=== PATIENT | female | born 1990 | race Two or more races ===

== ENCOUNTER 2017-08-20 22:12 | Emergency (ER) | payer OTHER ==
[~2017-08-20] VITALS: Ht 157.5 cm; Wt 52.2 kg
== END 2017-08-20 23:40 | disposition home or self-care (01) ==
LOC: ER 22:12
DX: S00.87XA Other superficial bite of other part of head, initial encounter (principal); W54.0XXA Bitten by dog, initial encounter; Y93.89 Activity, other specified; Y92.89 Other specified places as the place of occurrence of the external cause; Y99.8 Other external cause status

== ENCOUNTER → 2018-11-07 | Outpatient (CLI) | payer OTHER | END | disposition home or self-care (01) | LOC: RAD 11:53 | DX: M75.42 Impingement syndrome of left shoulder (principal) ==

== ENCOUNTER 2019-08-05 15:42 | Outpatient (CLI) | payer OTHER ==
[2019-08-05] MEDS ORDERED: CORTISPORIN EAR10 M1 OTIC (16:49)
== END 2019-08-05 17:53 | disposition home or self-care (01) ==
LOC: OFIC 805 15:42
PROVIDERS: ATTEND Otolaryngology
DX: H92.03 Otalgia, bilateral (principal)

== ENCOUNTER 2021-05-10 09:07 | Outpatient (CLI) | payer OTHER ==
[~2021-05-10 09:07] MED LIST: CORTISPORIN EAR10 M1 OTIC
== END 2021-05-10 09:17 | disposition home or self-care (01) ==
LOC: SONOGRAMA 09:07
PROVIDERS: ATTEND Internal Medicine
DX: R10.9 Unspecified abdominal pain (principal); E04.2 Nontoxic multinodular goiter

== ENCOUNTER 2021-05-10 10:07 | Outpatient (CLI) | payer OTHER | END 2021-05-10 10:08 | disposition home or self-care (01) | LOC: NUCLEAR 10:07 | PROVIDERS: ATTEND Internal Medicine | DX: R00.0 Tachycardia, unspecified (principal) ==